=== PATIENT | male | born 1985 | race Caucasian/White ===

== ENCOUNTER 2017-09-13 05:49 | Inpatient (IN) | payer OTHER ==
[~2017-09-13] VITALS: Ht 177.8 cm; Wt 124.5 kg
[2017-09-13 05:55] VITALS: BP 161/79; PULSE 74; RESP 18; TEMP 98.6; O2SAT 97
[2017-09-13] MEDS ORDERED: SILVER SULFADIAZINE 1% CR 400 GM JAR TOPICAL ONE (06:15)
[2017-09-13] MEDS ORDERED: MORPHINE SULFATE 4 MG/ML INJ IV PUSH ONE (06:15)
[2017-09-13] MEDS ORDERED: MISCELLANEOUS NURSING INFORMATION XX SCH (07:00)
[2017-09-13] MEDS ORDERED: CHLORHEXIDINE GLUCONATE 2 % 1 PACK (2 CLOTHS) TOP PRN (07:00)
[2017-09-13] MEDS ORDERED: ONDANSETRON HCL 4 MG/2 ML VIAL IV PUSH PRN (07:00)
[2017-09-13 07:17] VITALS: BP 157/73; PULSE 95; RESP 18; O2SAT 94
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
[2017-09-13] MEDS: ACETAMINOPHEN 1000 MG/100 ML 100 ML IV SCH ×3 (07:51→19:30)
[2017-09-13] MEDS: MAGNESIUM HYDROXIDE SUSP 30 ML CUP PO SCH ×2 (08:16→20:50)
[2017-09-13] MEDS: DOCUSATE SODIUM 50 MG/SENNA 8.6 MG TAB PO SCH ×2 (08:16→20:50)
[2017-09-13] MEDS: SILVER SULFADIAZINE 1% CR 50 GM JAR TOPICAL SCH ×2 (09:00→20:50)
[2017-09-13] MEDS ORDERED: DOCUSATE SODIUM 100 MG CAP PO SCH (09:00)
[2017-09-13] MEDS: METHOCARBAMOL 500 MG TAB PO SCH ×2 (09:27→16:58)
[2017-09-13] MEDS: LIDOCAINE HCL 5% PATCH T-DERMAL SCH (09:28)
[2017-09-13 12:00] VITALS: BP 152/75; PULSE 82; RESP 18; O2SAT 96
[2017-09-13] MEDS: MORPHINE SULFATE 8 MG/ML INJ IV PUSH PRN ×2 (17:00→20:09)
[2017-09-13 17:20] VITALS: BP 140/80; PULSE 81; RESP 18; TEMP 95.9; O2SAT 95
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
[2017-09-13 20:00] VITALS: BP 141/81; PULSE 94; RESP 18; TEMP 96.6; O2SAT 96
[2017-09-13] MEDS: REMOVE OLD LIDOCAINE PATCH T-DERMAL SCH (20:50)
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
[2017-09-14] VITALS (7 sets, daily range): BP systolic 139–179; BP diastolic 75–99; PULSE 92–103; RESP 17–20; TEMP 98–99.1; O2SAT 95–96
[2017-09-14] MEDS: METHOCARBAMOL 500 MG TAB PO SCH ×3 (00:24→18:04)
[2017-09-14] MEDS: ACETAMINOPHEN 1000 MG/100 ML 100 ML IV SCH (00:25)
[2017-09-14] MEDS: MORPHINE SULFATE 8 MG/ML INJ IV PUSH PRN ×4 (02:06→20:02)
[2017-09-14] MEDS ORDERED: CHLORHEXIDINE GLUCONATE 2 % 1 PACK (2 CLOTHS) TOP SCH (04:00)
[2017-09-14 05:12] LABS: AUTOMATED NEUTROPHIL # 6.7 TH/MM3 (1.8-7.7); BASOPHIL % 0.5 % (0.0-2.0); EOSINOPHIL # 0.2 TH/MM3 (0-0.4); EOSINOPHIL % 1.7 % (0.0-4.0); HEMATOCRIT 38.5 % (39.0-51.0); HEMOGLOBIN 13.3 GM/DL (13.0-17.0); LYMPH % 18.2 % (9.0-44.0); LYMPHOCYTE # 1.8 TH/MM3 (1.0-4.8); MEAN CELL VOLUME 84.9 FL (80.0-100.0); MEAN CORPUSCULAR HEMOGLOBIN 29.3 PG (27.0-34.0); MEAN CORPUSCULAR HGB CONC 34.5 % (32.0-36.0); MEAN PLATELET VOLUME 8.1 FL (7.0-11.0); MONO % 12.7 % (0.0-8.0); MONOCYTE # 1.3 TH/MM3 (0-0.9); NEUT % 66.9 % (16.0-70.0); PLATELET COUNT 178 TH/MM3 (150-450); RED BLOOD COUNT 4.54 MIL/MM3 (4.50-5.90); RED CELL DISTRIBUTION WIDTH 14.7 % (11.6-17.2); WHITE BLOOD COUNT 10.1 TH/MM3 (4.0-11.0)
[2017-09-14 05:25] LABS: BICARBONATE 27.5 MEQ/L (21.0-32.0); CALCIUM 7.8 MG/DL (8.5-10.1); CREATININE 0.94 MG/DL (0.60-1.30)
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
[2017-09-14] MEDS: MAGNESIUM HYDROXIDE SUSP 30 ML CUP PO SCH ×2 (08:00→20:01)
[2017-09-14] MEDS: DOCUSATE SODIUM 50 MG/SENNA 8.6 MG TAB PO SCH ×2 (08:00→20:02)
[2017-09-14] MEDS: LIDOCAINE HCL 5% PATCH T-DERMAL SCH (08:01)
[2017-09-14] MEDS: SILVER SULFADIAZINE 1% CR 50 GM JAR TOPICAL SCH ×2 (08:06→20:03)
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
[2017-09-14] MEDS: REMOVE OLD LIDOCAINE PATCH T-DERMAL SCH (20:03)
[2017-09-14] MEDS ORDERED: METOPROLOL TARTRATE 25 MG TAB PO PRN (22:00)
[2017-09-14] MEDS ORDERED: POVIDONE IODINE 5% (ANTISEPSIS KIT) 4 APPLICATIONS EACH NARE PRN (22:00)
[2017-09-14] MEDS ORDERED: CHLORHEXIDINE GLUCONATE 2 % 1 PACK (2 CLOTHS) TOPICAL PRN (22:00)
[2017-09-14] MEDS ORDERED: SODIUM CHLORID 0.9% 500 ML IV PRN (22:00)
[2017-09-14] MEDS ORDERED: LACTATED RINGER'S 1000 ML IV PRN (22:00)
[2017-09-15] VITALS: BP 137/84; PULSE 101; RESP 17; TEMP 98.4; O2SAT 92
[2017-09-15] MEDS: METHOCARBAMOL 500 MG TAB PO SCH ×3 (01:09→17:00)
[2017-09-15] MEDS: MORPHINE SULFATE 8 MG/ML INJ IV PUSH PRN (03:14)
[2017-09-15 06:05] VITALS: BP 149/91; PULSE 98; RESP 16; TEMP 99.3; O2SAT 92
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
[2017-09-15] MEDS: ENOXAPARIN SODIUM 40 MG/0.4 ML SYRINGE SQ SCH (07:00)
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
[2017-09-15 07:56] VITALS: BP 144/75; PULSE 86; RESP 18; TEMP 97.3; O2SAT 92
[2017-09-15] MEDS: MAGNESIUM HYDROXIDE SUSP 30 ML CUP PO SCH ×2 (08:04→21:00)
[2017-09-15] MEDS: LIDOCAINE HCL 5% PATCH T-DERMAL SCH (08:04)
[2017-09-15] MEDS: DOCUSATE SODIUM 50 MG/SENNA 8.6 MG TAB PO SCH ×2 (08:04→21:00)
[2017-09-15] MEDS: SILVER SULFADIAZINE 1% CR 50 GM JAR TOPICAL SCH ×2 (08:05→21:37)
[2017-09-15] MEDS: KETOROLAC TROMETHAMINE 30 MG/ML (IVP) VIAL IV PUSH SCH ×3 (09:12→23:06)
[2017-09-15 11:53] VITALS: BP 140/90; PULSE 90; RESP 18; TEMP 97.4; O2SAT 95
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
[2017-09-15 15:50] VITALS: BP 149/81; PULSE 92; RESP 18; TEMP 97.9; O2SAT 96
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
[2017-09-15 20:00] VITALS: BP 143/82; PULSE 96; RESP 22; TEMP 99.5; O2SAT 95
[2017-09-15] MEDS: REMOVE OLD LIDOCAINE PATCH T-DERMAL SCH (21:00)
[2017-09-16] VITALS: BP 158/80; PULSE 95; RESP 20; TEMP 99; O2SAT 96
[2017-09-16] MEDS: METHOCARBAMOL 500 MG TAB PO SCH ×3 (01:16→17:06)
[2017-09-16] MEDS: ENOXAPARIN SODIUM 40 MG/0.4 ML SYRINGE SQ SCH (01:18)
[2017-09-16 04:00] VITALS: BP 141/73; PULSE 77; RESP 18; TEMP 98; O2SAT 98
[2017-09-16] MEDS: KETOROLAC TROMETHAMINE 30 MG/ML (IVP) VIAL IV PUSH SCH (05:11)
[2017-09-16 05:12] LABS: AUTOMATED NEUTROPHIL # 4.7 TH/MM3 (1.8-7.7); BASOPHIL % 0.6 % (0.0-2.0); EOSINOPHIL # 0.2 TH/MM3 (0-0.4); EOSINOPHIL % 3.2 % (0.0-4.0); HEMATOCRIT 37.6 % (39.0-51.0); HEMOGLOBIN 12.9 GM/DL (13.0-17.0); LYMPH % 22.2 % (9.0-44.0); LYMPHOCYTE # 1.7 TH/MM3 (1.0-4.8); MEAN CELL VOLUME 84.9 FL (80.0-100.0); MEAN CORPUSCULAR HEMOGLOBIN 29.1 PG (27.0-34.0); MEAN CORPUSCULAR HGB CONC 34.3 % (32.0-36.0); MEAN PLATELET VOLUME 8.4 FL (7.0-11.0); MONO % 11.7 % (0.0-8.0); MONOCYTE # 0.9 TH/MM3 (0-0.9); NEUT % 62.3 % (16.0-70.0); PLATELET COUNT 196 TH/MM3 (150-450); RED BLOOD COUNT 4.43 MIL/MM3 (4.50-5.90); RED CELL DISTRIBUTION WIDTH 14.5 % (11.6-17.2); WHITE BLOOD COUNT 7.5 TH/MM3 (4.0-11.0)
[2017-09-16 05:20] LABS: BICARBONATE 28.1 MEQ/L (21.0-32.0); CALCIUM 8.4 MG/DL (8.5-10.1); CREATININE 0.76 MG/DL (0.60-1.30)
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
[2017-09-16 08:00] VITALS: BP 135/70; PULSE 67; RESP 18; TEMP 96.8; O2SAT 96
[2017-09-16] MEDS: MAGNESIUM HYDROXIDE SUSP 30 ML CUP PO SCH ×2 (08:42→21:08)
[2017-09-16] MEDS: DOCUSATE SODIUM 50 MG/SENNA 8.6 MG TAB PO SCH ×2 (08:43→21:08)
[2017-09-16] MEDS: SILVER SULFADIAZINE 1% CR 50 GM JAR TOPICAL SCH ×2 (08:43→21:10)
[2017-09-16] MEDS: LIDOCAINE HCL 5% PATCH T-DERMAL SCH (08:43)
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
[2017-09-16 12:00] VITALS: BP 139/84; PULSE 88; RESP 18; TEMP 97.5; O2SAT 98
[2017-09-16 16:00] VITALS: BP 160/93; PULSE 87; RESP 18; TEMP 97.7; O2SAT 97
[2017-09-16 19:28] VITALS: BP 152/72; PULSE 90; RESP 18; TEMP 97.5; O2SAT 94
[2017-09-16] MEDS: REMOVE OLD LIDOCAINE PATCH T-DERMAL SCH (21:00)
[2017-09-17] VITALS (7 sets, daily range): BP systolic 127–173; BP diastolic 75–94; PULSE 66–101; RESP 18–20; TEMP 97–98.6; O2SAT 95–98
[2017-09-17] MEDS: METHOCARBAMOL 500 MG TAB PO SCH ×3 (01:03→17:19)
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
[2017-09-17] MEDS: ENOXAPARIN SODIUM 40 MG/0.4 ML SYRINGE SQ SCH (07:33)
[2017-09-17] MEDS: SILVER SULFADIAZINE 1% CR 50 GM JAR TOPICAL SCH ×2 (09:00→20:34)
[2017-09-17] MEDS: MAGNESIUM HYDROXIDE SUSP 30 ML CUP PO SCH ×2 (09:21→20:31)
[2017-09-17] MEDS: LIDOCAINE HCL 5% PATCH T-DERMAL SCH (09:21)
[2017-09-17] MEDS: DOCUSATE SODIUM 50 MG/SENNA 8.6 MG TAB PO SCH ×2 (09:21→20:31)
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
[2017-09-17] MEDS: REMOVE OLD LIDOCAINE PATCH T-DERMAL SCH (20:34)
[2017-09-18] MEDS: METHOCARBAMOL 500 MG TAB PO SCH ×3 (02:18→18:04)
[2017-09-18] MEDS: ENOXAPARIN SODIUM 40 MG/0.4 ML SYRINGE SQ SCH (02:21)
[2017-09-18 03:58] VITALS: BP 129/84; PULSE 86; RESP 18; TEMP 97.2; O2SAT 96
[2017-09-18] MEDS ORDERED: CHLORHEXIDINE GLUCONATE 2 % 1 PACK (2 CLOTHS) TOPICAL PRN (04:15)
[2017-09-18] MEDS ORDERED: SODIUM CHLORID 0.9% 500 ML IV PRN (04:15)
[2017-09-18] MEDS ORDERED: LACTATED RINGER'S 1000 ML IV PRN (04:15)
[2017-09-18] MEDS ORDERED: POVIDONE IODINE 5% (ANTISEPSIS KIT) 4 APPLICATIONS EACH NARE PRN (04:15)
[2017-09-18 04:54] LABS: AUTOMATED NEUTROPHIL # 6.2 TH/MM3 (1.8-7.7); BASOPHIL # 0.1 TH/MM3 (0-0.2); BASOPHIL % 0.7 % (0.0-2.0); EOSINOPHIL # 0.4 TH/MM3 (0-0.4); EOSINOPHIL % 4.3 % (0.0-4.0); HEMATOCRIT 37.6 % (39.0-51.0); HEMOGLOBIN 13.1 GM/DL (13.0-17.0); LYMPH % 17.5 % (9.0-44.0); LYMPHOCYTE # 1.6 TH/MM3 (1.0-4.8); MEAN CELL VOLUME 84.6 FL (80.0-100.0); MEAN CORPUSCULAR HEMOGLOBIN 29.4 PG (27.0-34.0); MEAN CORPUSCULAR HGB CONC 34.7 % (32.0-36.0); MEAN PLATELET VOLUME 7.9 FL (7.0-11.0); MONO % 9.3 % (0.0-8.0); MONOCYTE # 0.8 TH/MM3 (0-0.9); NEUT % 68.2 % (16.0-70.0); PLATELET COUNT 228 TH/MM3 (150-450); RED BLOOD COUNT 4.44 MIL/MM3 (4.50-5.90); RED CELL DISTRIBUTION WIDTH 14.4 % (11.6-17.2); WHITE BLOOD COUNT 9.1 TH/MM3 (4.0-11.0)
[2017-09-18 05:13] LABS: AST (GOT) 41 U/L (15-37); BICARBONATE 27.1 MEQ/L (21.0-32.0); BLOOD UREA NITROGEN 11 MG/DL (7-18); CALCIUM 8.6 MG/DL (8.5-10.1); CHLORIDE 100 MEQ/L (98-107); CREATININE 0.82 MG/DL (0.60-1.30); GLOMERULAR FILTRATION RATE 109 ML/MIN (>89); GLUCOSE,RANDOM 102 MG/DL (74-106); SODIUM (NA) 136 MEQ/L (136-145)
[2017-09-18 05:14] LABS: ALT (GPT) 38 U/L (12-78)
[2017-09-18 05:16] LABS: ALKALINE PHOSPHATASE 106 U/L (45-117); TOTAL BILIRUBIN ADULT 0.6 MG/DL (0.2-1.0); TOTAL PROTEIN 6.8 GM/DL (6.4-8.2)
--- NOTE | 2017-09-18 06:43 | PD.ORT.PN ---
Subjective Subjective Remarks s/p left tibial plateau fx doing well. no changes Objective Vitals Vital Signs Date Time Temp Pulse Resp B/P (MAP) Pulse Ox O2 Delivery O2 Flow Rate FiO2 09/18/17 03:58 97.2 86 18 129/84 (99) 96 09/17/17 23:00 98.4 97 19 149/81 (103) 98 09/17/17 19:40 98.6 83 18 162/94 (116) 97 09/17/17 16:00 97.1 95 20 158/77 (104) 97 09/17/17 15:00 18 09/17/17 12:00 97.0 101 20 173/77 (109) 97 09/17/17 08:00 97.6 66 20 151/86 (107) 95 I/O 09/17/17 09/17/17 09/17/17 09/18/17 09/18/17 09/18/17 07:00 15:00 23:00 07:00 15:00 23:00 Intake Total 0 ml 480 ml 360 ml 0 ml Output Total 500 ml 700 ml Balance -500 ml 480 ml 360 ml -700 ml Intake Oral 0 ml 480 ml 360 ml 0 ml Output Urine Total 500 ml 700 ml # Voids 3 2 # Bowel Movements 0 0 0 1 Result Diagram: 09/18/17 0418 09/18/17 0419 Objective Remarks Multiple areas of road rash. Swelling and tenderness with minimal deformity right Little finger. Patient thinks that it is fractured. Left leg with knee immobilizer in place. Sensation normal. Active dorsiflexion plantar flexion of foot. Swelling a +3 over knee. Assessment & Plan Problem List: (1) Closed fracture of left tibial plateau ICD Codes: S82.142A - Displaced bicondylar fracture of left tibia, initial encounter for closed fracture Status: Acute Qualifiers: Qualified Codes: S82.142A - Displaced bicondylar fracture of left tibia, initial encounter for closed fracture (2) Multiple rib fractures ICD Codes: S22.49XA - Multiple fractures of ribs, unspecified side, initial encounter for closed fracture Status: Acute Qualifiers: Qualified Codes: S22.42XA - Multiple fractures of ribs, left side, initial encounter for closed fracture Assessment and Plan 1) Bicondylar left tibial plateau fracture. Multiple rib fractures. Multiple areas of road rash. Possible right hand fracture. swelling too great for surgery today. would anticipate tomorrow Resume diet due to significant swelling Begin Toradol 15 mg every 8 hours 3 doses Lovenox x 1 dose this AM and hold after AM dose Will make nothing by mouth after midnight tonight planned surgery tomorrow sign consents Incentive spirometry Navdeep Pitt/Sales Store Checker PA Sep 18, 2017 06:43
[2017-09-18] MEDS: KETOROLAC TROMETHAMINE 30 MG/ML (IVP) VIAL IV PUSH SCH ×3 (07:34→21:46)
[2017-09-18 08:00] VITALS: BP 149/70; PULSE 88; RESP 18; TEMP 96.1; O2SAT 96
[2017-09-18] MEDS ORDERED: ENOXAPARIN SODIUM 40 MG/0.4 ML SYRINGE SQ ONE (08:00)
[2017-09-18] MEDS: LIDOCAINE HCL 5% PATCH T-DERMAL SCH (08:27)
[2017-09-18] MEDS: DOCUSATE SODIUM 50 MG/SENNA 8.6 MG TAB PO SCH ×2 (08:27→20:29)
[2017-09-18] MEDS: MAGNESIUM HYDROXIDE SUSP 30 ML CUP PO SCH ×2 (08:29→20:29)
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
[2017-09-18] MEDS: SILVER SULFADIAZINE 1% CR 50 GM JAR TOPICAL SCH ×2 (09:00→20:30)
[2017-09-18 12:00] VITALS: BP 160/74; PULSE 98; RESP 18; TEMP 97.4; O2SAT 97
[2017-09-18 16:16] VITALS: BP 142/76; PULSE 95; RESP 18; TEMP 97.7; O2SAT 96
[2017-09-18 20:40] VITALS: BP 154/79; PULSE 90; RESP 19; TEMP 99; O2SAT 98
[2017-09-18] MEDS: REMOVE OLD LIDOCAINE PATCH T-DERMAL SCH (21:00)
[2017-09-18 23:45] VITALS: BP 145/78; PULSE 88; RESP 16; TEMP 97.4; O2SAT 97
[2017-09-19] MEDS: METHOCARBAMOL 500 MG TAB PO SCH ×3 (02:18→15:45)
[2017-09-19 04:15] VITALS: BP 138/79; PULSE 79; RESP 16; TEMP 97.6; O2SAT 98
--- NOTE | 2017-09-19 06:24 | PD.ORT.PN ---
Subjective Subjective Remarks s/p left tibial plateau fx doing well. no changes Objective Vitals Vital Signs Date Time Temp Pulse Resp B/P (MAP) Pulse Ox O2 Delivery O2 Flow Rate FiO2 09/19/17 04:15 97.6 79 16 138/79 (98) 98 09/18/17 23:45 97.4 88 16 145/78 (100) 97 09/18/17 20:40 99.0 90 19 154/79 (104) 98 09/18/17 16:16 97.7 95 18 142/76 (98) 96 09/18/17 12:00 97.4 98 18 160/74 (102) 97 09/18/17 08:00 96.1 88 18 149/70 (96) 96 I/O 09/18/17 09/18/17 09/18/17 09/19/17 09/19/17 09/19/17 07:00 15:00 23:00 07:00 15:00 23:00 Intake Total 0 ml 480 ml 0 ml Output Total 700 ml 350 ml Balance -700 ml 480 ml -350 ml Intake Oral 0 ml 480 ml 0 ml Output Urine Total 700 ml 350 ml # Voids 3 # Bowel Movements 1 1 0 Result Diagram: 09/18/17 0418 09/18/17 0419 Objective Remarks Multiple areas of road rash. Swelling and tenderness with minimal deformity right Little finger. Patient thinks that it is fractured. Left leg with knee immobilizer in place. Sensation normal. Active dorsiflexion plantar flexion of foot. Swelling a +1 over knee. Assessment & Plan Problem List: (1) Closed fracture of left tibial plateau ICD Codes: S82.142A - Displaced bicondylar fracture of left tibia, initial encounter for closed fracture Status: Acute Qualifiers: Qualified Codes: S82.142A - Displaced bicondylar fracture of left tibia, initial encounter for closed fracture (2) Multiple rib fractures ICD Codes: S22.49XA - Multiple fractures of ribs, unspecified side, initial encounter for closed fracture Status: Acute Qualifiers: Qualified Codes: S22.42XA - Multiple fractures of ribs, left side, initial encounter for closed fracture Assessment and Plan 1) Bicondylar left tibial plateau fracture. Multiple rib fractures. Multiple areas of road rash. Possible right hand fracture. surgery this AM for ORIF of left tibial plateau with Dr DexterNavdeep Diaz PA/Cell Room Supervisor PA Sep 19, 2017 06:24
[2017-09-19] MEDS ORDERED: XARE10TA PO (06:25)
[2017-09-19] MEDS ORDERED: WALKER/ADULT/FO1 MIS (06:25)
[2017-09-19] MEDS ORDERED: HYDR-3583 PO (06:25)
[2017-09-19 06:58] LABS: INTERNATIONAL NORMALIZED RATIO 1.1 RATIO; PROTHROMBIN TIME - PATIENT 11.2 SEC (9.8-11.6)
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
[2017-09-19] MEDS ORDERED: VANCOMYCIN HCL 1000 MG VIAL ONE (08:08)
[2017-09-19] MEDS ORDERED: GENTAMICIN SULFATE 80 MG/2 ML VIAL ONE (08:08)
[2017-09-19] MEDS ORDERED: ceFAZolin INJ 1,000 MG VIAL ONE (08:08)
[2017-09-19] MEDS ORDERED: SODIUM CHLOR 0.9% 250 ML INJ 250 ML ONE (08:09)
[2017-09-19] MEDS: DOCUSATE SODIUM 50 MG/SENNA 8.6 MG TAB PO SCH ×2 (09:00→20:59)
[2017-09-19] MEDS: LIDOCAINE HCL 5% PATCH T-DERMAL SCH (09:00)
[2017-09-19] MEDS: MAGNESIUM HYDROXIDE SUSP 30 ML CUP PO SCH ×2 (09:00→20:59)
[2017-09-19] MEDS: SILVER SULFADIAZINE 1% CR 50 GM JAR TOPICAL SCH ×2 (09:00→21:00)
[2017-09-19] MEDS ORDERED: LACTATED RINGER'S 1000 ML INJ 1,000 ML IV SCH (09:58)
[2017-09-19] MEDS ORDERED: Post-op Orders (for Pharmacy) XX ONE (10:00)
[2017-09-19] MEDS ORDERED: MISCELLANEOUS NURSING INFORMATION XX PRN (10:00)
--- NOTE | 2017-09-19 10:04 | PD.OP ---
cc: Joseph Francis MD Operative Report Date of Surgery: Sep 19, 2017 Preoperative Diagnosis: Left bicondylar tibial plateau fracture Postoperative Diagnosis: Procedure: Open reduction internal fixation of left bicondylar tibial plateau Anesthesia: Gen. Surgeon: Joseph Francis Workday Manager(s): CATHY Lieberman PA-C The surgical procedure was assisted by my physician surgical first assistant. My P.A. presence was necessary throughout this case for the manipulation and positioning of the surgical extremity. My P.A. was assisting me throughout the duration of this procedure. The skill set of a physician surgical first assistant was medically necessary to complete this procedure. During the surgical case the surgical pathologist was working at the back table and the physician surgical first assistant was directly assisting me. Operation and Findings: Implants used: Synthes Plan of activity: Nonweightbearing left leg This patient was seen and evaluated preoperatively. Patient sustained an injury resulting a left bicondylar tibial plateau fracture. Informed consent was obtained preoperatively after detailed discussion of the risks and benefits of surgery. Risk of surgery including bleeding, infection, nonunion, painful hardware, stiffness, loss of motion, arthritis, need for knee replacement, as well as medical complications including blood clots, stroke, heart attack, and were discussed. I also discussed the possibility of using allograft bone graft . Preoperatively the operative site was marked. Patient was brought to the operating room and placed on the operating room table. Intravenous sedation and general endotracheal anesthesia were administered. IV antibiotics were given and a time out procedure was preformed. The operative leg was prepped with alcohol followed by Hibiclens and draped in the usual sterile fashion. Procedure began with a 4-inch curvilinear incision over the anterolateral knee. Subcutaneous tissue was treated with Bovie. Iliotibial band was split in line with fibers. A sub-meniscal arthrotomy was created and the lateral articular surface was visualized. There was depression of the articular surface. A window was made in the metaphyseal region and bone tamps used to elevate the articular surface. Articular surface reduced into excellent alignment. At this point the metaphyseal portion of the lateral plateau was reduced. Fracture tenaculums were used to aid in reduction. Traction was applied and fracture was manipulated. At this point the medial plateau was visualized. A periarticular clamp was used to compress the medial tibial plateau with a lateral plateau fragment. K-wires were used for provisional fixation. At this point cancellous bone graft was packed under the articular surface using a bone tamp. The cortical fragments were now reduced. Fluoroscopy revealed excellent alignment of fracture. A Synthes proximal tibial plate was selected. The plate was provisionally held with K-wires. 3.5 cortical screws were used compress plate to bone distally, and a periarticular clamp was used to compress the medial and lateral tibial plateau fracture fragments together. Multiple locking screws were now placed proximally. Additional screws were placed in the shaft. K-wires were removed. Final fluoroscopy showed excellent alignment of fracture with well-placed hardware. The incision was thoroughly irrigated. Arthrotomy and iliotibial band closed with #1 Vicryl,. Subcutaneous tissues closed with 3-0 Vicryl and skin was closed with jazz. Sterile dressings were applied. The patient was transferred to recovery in stable condition. Joseph Francis MD Sep 19, 2017 10:04
--- NOTE | 2017-09-19 10:53 | PD.ORT.PN ---
Subjective Subjective Remarks POD 0 s/p ORIF left tibial plateau doing well. stable in PACU Objective Vitals Vital Signs Date Time Temp Pulse Resp B/P (MAP) Pulse Ox O2 Delivery O2 Flow Rate FiO2 09/19/17 10:36 97.7 87 20 115/82 (93) 94 Nasal Cannula 2 09/19/17 04:15 97.6 79 16 138/79 (98) 98 09/18/17 23:45 97.4 88 16 145/78 (100) 97 09/18/17 20:40 99.0 90 19 154/79 (104) 98 09/18/17 16:16 97.7 95 18 142/76 (98) 96 09/18/17 12:00 97.4 98 18 160/74 (102) 97 I/O 09/18/17 09/18/17 09/18/17 09/19/17 09/19/17 09/19/17 07:00 15:00 23:00 07:00 15:00 23:00 Intake Total 0 ml 480 ml 0 ml 750 ml Output Total 700 ml 350 ml 200 ml Balance -700 ml 480 ml -350 ml 550 ml Intake Oral 0 ml 480 ml 0 ml Other 750 ml Output Urine Total 700 ml 350 ml Estimated Blood Loss 200 ml # Voids 3 1 # Bowel Movements 1 1 0 Result Diagram: 09/18/17 0418 09/18/17 0419 Other Results Laboratory Tests Test 09/19/17 06:18 Prothromb Time International Ratio 1.1 RATIO Prothrombin Time 11.2 SEC (9.8-11.6) Imaging Last 24 hours Impressions Chest X-Ray 09/19/17 0600 Signed Impressions: Service Date/Time: Tuesday, September 19, 2017 06:24 - CONCLUSION: Left basilar atelectasis. Shane Gannon MD Objective Remarks LLE: Dressings clean and dry. intact. +CKS. good cap refill distally Assessment & Plan Problem List: (1) Closed fracture of left tibial plateau ICD Codes: S82.142A - Displaced bicondylar fracture of left tibia, initial encounter for closed fracture Status: Acute Qualifiers: Qualified Codes: S82.142A - Displaced bicondylar fracture of left tibia, initial encounter for closed fracture (2) Multiple rib fractures ICD Codes: S22.49XA - Multiple fractures of ribs, unspecified side, initial encounter for closed fracture Status: Acute Qualifiers: Qualified Codes: S22.42XA - Multiple fractures of ribs, left side, initial encounter for closed fracture Assessment and Plan 1) Left Tibial Plateau fx s/p ORIF - POD 0 Multiple rib fractures. Multiple areas of road rash. Possible right hand fracture. -NWB LLE -knee brace at all times except for PT -PROM 0-90 -no AROM, leg lifts, quad sets -daily dressing changes POD 2 -DVT prophylaxis -plan for DC home with [facility] -f/u Ortho in 2 weeks [place] to [place] -ortho surgeries complete Navdeep Pitt/First Raúl ROSENBERG Sep 19, 2017 10:53
[2017-09-19] MEDS ORDERED: DO NOT ADM ANY ANTICOAGULANT DRUGS PRN (11:00)
[2017-09-19] MEDS ORDERED: *morphine SULFATE 10 MG/ML PERIprocedure ONLY ONE (11:03)
[2017-09-19] MEDS: KETOROLAC TROMETHAMINE 30 MG/ML (IVP) VIAL IV PUSH SCH ×2 (11:40→18:28)
[2017-09-19 12:00] VITALS: BP 123/68; PULSE 89; RESP 18; TEMP 97; O2SAT 92
[2017-09-19] MEDS ORDERED: DEXAMETHASONE SOD PHOS 4 MG/ML VIAL IV ONE (12:00)
[2017-09-19] MEDS ORDERED: LIDOCAINE HCL 1% PF 5 ML SYRINGE OTHER ONE (12:00)
[2017-09-19] MEDS ORDERED: KETOROLAC TROMETHAMINE 30 MG/ML (IVP) VIAL IV PUSH ONE (12:00)
[2017-09-19] MEDS ORDERED: ONDANSETRON HCL 4 MG/2 ML VIAL IV ONE (12:00)
[2017-09-19] MEDS ORDERED: PROPOFOL 200 MG/20 ML AMP IV ONE (12:00)
[2017-09-19 12:19] VITALS: O2SAT 92
[2017-09-19] MEDS ORDERED: ERGOCALCIFEROL (VIT D2) 50,000 UNIT CAP PO SCH (15:00)
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
[2017-09-19 16:00] VITALS: BP 151/70; PULSE 105; RESP 18; TEMP 99; O2SAT 95
[2017-09-19] MEDS: CEFAZOLIN INJ 2,000 MG in SODIUM CHLORIDE 0.9% INJ 100 ML IV SCH (16:15)
--- NOTE | 2017-09-19 19:52 | RADRPT ---
EXAM DATE/TIME: 09/19/2017 09:46 [facility] COMPARISON: No previous studies available for comparison. INDICATIONS : Left Tibia fracture- ORIF Tibial plateau. MEDICAL HISTORY : None. SURGICAL HISTORY : None. ENCOUNTER: Initial ACUITY: 1 day PAIN SCORE: Non-responsive. LOCATION: Left Lower. FINDINGS: Plate and screw fixation of the proximal tibia. Near-anatomic alignment. CONCLUSION: 1. Fixation proximal tibia. Korey Licona MD on September 19, 2017 at 19:49 Board Certified Radiologist. This report was verified electronically.
[2017-09-19 20:03] VITALS: BP 145/69; PULSE 107; RESP 18; TEMP 98.3; O2SAT 98
[2017-09-19] MEDS: VANCOMYCIN INJ 1,000 MG in SODIUM CHLOR 0.9% 250 ML INJ 250 ML IV SCH (20:39)
[2017-09-19] MEDS: REMOVE OLD LIDOCAINE PATCH T-DERMAL SCH (20:59)
[2017-09-19] MEDS: MORPHINE SULFATE 8 MG/ML INJ IV PUSH PRN (22:14)
[2017-09-19 23:30] VITALS: BP 140/64; PULSE 98; RESP 18; TEMP 97.9; O2SAT 95
[2017-09-20] MEDS: METHOCARBAMOL 500 MG TAB PO SCH ×3 (00:30→14:45)
[2017-09-20] MEDS: KETOROLAC TROMETHAMINE 30 MG/ML (IVP) VIAL IV PUSH SCH ×4 (00:30→18:00)
[2017-09-20] MEDS: CEFAZOLIN INJ 2,000 MG in SODIUM CHLORIDE 0.9% INJ 100 ML IV SCH ×3 (00:30→14:45)
[2017-09-20 03:38] VITALS: BP 129/66; PULSE 95; RESP 18; TEMP 98; O2SAT 97
[2017-09-20 06:00] LABS: HEMATOCRIT 34.2 % (39.0-51.0); HEMOGLOBIN 11.8 GM/DL (13.0-17.0)
--- NOTE | 2017-09-20 06:46 | PD.ORT.PN ---
Subjective Subjective Remarks Resting comfortably with no new complaints Objective Vitals Vital Signs Date Time Temp Pulse Resp B/P (MAP) Pulse Ox O2 Delivery O2 Flow Rate FiO2 09/20/17 03:38 98.0 95 18 129/66 (87) 97 09/19/17 23:30 97.9 98 18 140/64 (89) 95 09/19/17 20:03 98.3 107 18 145/69 (94) 98 09/19/17 16:00 99.0 105 18 151/70 (97) 95 09/19/17 12:19 92 Nasal Cannula 2.00 09/19/17 12:00 97.0 89 18 123/68 (86) 92 09/19/17 11:16 97.7 87 20 106/60 (75) 93 Nasal Cannula 2 09/19/17 11:00 86 20 131/64 (86) 94 Nasal Cannula 2 09/19/17 10:45 82 20 125/59 (81) 93 Nasal Cannula 2 09/19/17 10:36 97.7 87 20 115/82 (93) 94 Nasal Cannula 2 I/O 09/19/17 09/19/17 09/19/17 09/20/17 09/20/17 09/20/17 07:00 15:00 23:00 07:00 15:00 23:00 Intake Total 0 ml 1230 ml 480 ml 480 ml Output Total 350 ml 900 ml 750 ml Balance -350 ml 330 ml 480 ml -270 ml Intake Oral 0 ml 480 ml 480 ml 480 ml Other 750 ml Output Urine Total 350 ml 700 ml 750 ml Estimated Blood Loss 200 ml # Voids 1 4 # Bowel Movements 0 0 0 0 Result Diagram: 09/20/17 0537 09/18/17 0419 Imaging Last 24 hours Impressions Chest X-Ray 09/19/17 0600 Signed Impressions: Service Date/Time: Tuesday, September 19, 2017 06:24 - CONCLUSION: Left basilar atelectasis. Shane Gannon MD Objective Remarks LLE: Dressings clean and dry. intact. +CKS. good cap refill distally. Active dorsiflexion and plantar flexion of foot Assessment & Plan Problem List: (1) Closed fracture of left tibial plateau ICD Codes: S82.142A - Displaced bicondylar fracture of left tibia, initial encounter for closed fracture Status: Acute Qualifiers: Qualified Codes: S82.142A - Displaced bicondylar fracture of left tibia, initial encounter for closed fracture (2) Multiple rib fractures ICD Codes: S22.49XA - Multiple fractures of ribs, unspecified side, initial encounter for closed fracture Status: Acute Qualifiers: Qualified Codes: S22.42XA - Multiple fractures of ribs, left side, initial encounter for closed fracture Assessment and Plan 1) Left Tibial Plateau fx s/p ORIF - POD 1 Multiple rib fractures. Multiple areas of road rash. Right fifth finger fracture. -NWB LLE -knee brace at all times except for PT -PROM 0-90 -no AROM, leg lifts, quad sets -daily dressing changes POD 2 -DVT prophylaxis -plan for DC home on Friday or Friday -f/u Ortho in 2 weeks Incentive spirometry Bubba Miles Jr. Sep 20, 2017 06:46
[2017-09-20 08:00] VITALS: BP 113/76; PULSE 95; RESP 17; TEMP 98.5; O2SAT 95
[2017-09-20] MEDS: SILVER SULFADIAZINE 1% CR 50 GM JAR TOPICAL SCH ×2 (08:42→20:24)
[2017-09-20] MEDS: LIDOCAINE HCL 5% PATCH T-DERMAL SCH (08:59)
[2017-09-20] MEDS: MAGNESIUM HYDROXIDE SUSP 30 ML CUP PO SCH ×2 (09:00→20:15)
[2017-09-20] MEDS: ENOXAPARIN SODIUM 30 MG/0.3 ML SYRINGE SQ SCH ×2 (09:00→21:20)
[2017-09-20] MEDS: DOCUSATE SODIUM 50 MG/SENNA 8.6 MG TAB PO SCH ×2 (09:00→20:16)
[2017-09-20] MEDS: CHOLECALCIFEROL (VIT D3) 1000 UNIT TAB PO SCH (09:01)
[2017-09-20] MEDS: VANCOMYCIN INJ 1,000 MG in SODIUM CHLOR 0.9% 250 ML INJ 250 ML IV SCH ×2 (09:07→20:16)
[2017-09-20 12:00] VITALS: BP 133/63; PULSE 93; RESP 18; TEMP 98; O2SAT 97
[2017-09-20] MEDS: MORPHINE SULFATE 8 MG/ML INJ IV PUSH PRN ×2 (12:25→20:15)
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
[2017-09-20 16:00] VITALS: BP 150/67; PULSE 90; RESP 18; TEMP 98.4; O2SAT 96
[2017-09-20 20:00] VITALS: BP 153/70; PULSE 95; RESP 20; TEMP 98.2; O2SAT 95
[2017-09-20] MEDS: REMOVE OLD LIDOCAINE PATCH T-DERMAL SCH (20:24)
[2017-09-20] MEDS ORDERED: MAGN30S PO (20:46)
[2017-09-20] MEDS ORDERED: METH500T3 PO (20:46)
[2017-09-20] MEDS ORDERED: LIDO1ADH4 T-DERMAL (20:46)
[2017-09-20] MEDS ORDERED: PERI PO (20:46)
[2017-09-20 23:02] VITALS: BP 139/79; PULSE 92; RESP 18; TEMP 98; O2SAT 96
[2017-09-21] MEDS: METHOCARBAMOL 500 MG TAB PO SCH ×2 (00:33→08:45)
--- NOTE | 2017-09-21 07:13 | PD.ORT.PN ---
Subjective Subjective Remarks Resting comfortably with no new complaints Objective Vitals Vital Signs Date Time Temp Pulse Resp B/P (MAP) Pulse Ox O2 Delivery O2 Flow Rate FiO2 09/20/17 23:02 98.0 92 18 139/79 (99) 96 09/20/17 21:02 Nasal Cannula 2.00 09/20/17 20:00 98.2 95 20 153/70 (97) 95 09/20/17 16:06 Nasal Cannula 2.00 09/20/17 16:00 98.4 90 18 150/67 (94) 96 09/20/17 12:00 98.0 93 18 133/63 (86) 97 09/20/17 08:00 98.5 95 17 113/76 (88) 95 I/O 09/20/17 09/20/17 09/20/17 09/21/17 09/21/17 09/21/17 07:00 15:00 23:00 07:00 15:00 23:00 Intake Total 480 ml 480 ml 720 ml Output Total 750 ml 900 ml Balance -270 ml 480 ml -180 ml Intake Oral 480 ml 480 ml 720 ml Output Urine Total 750 ml 900 ml # Voids 5 # Bowel Movements 0 1 0 Result Diagram: 09/20/17 0537 09/18/17 0419 Imaging Last 24 hours Impressions Chest X-Ray 09/19/17 0600 Signed Impressions: Service Date/Time: Tuesday, September 19, 2017 06:24 - CONCLUSION: Left basilar atelectasis. Shane Gannon MD Objective Remarks LLE: Dressings clean and dry. intact. +CKS. good cap refill distally. Active dorsiflexion and plantar flexion of foot Assessment & Plan Problem List: (1) Closed fracture of left tibial plateau ICD Codes: S82.142A - Displaced bicondylar fracture of left tibia, initial encounter for closed fracture Status: Acute Qualifiers: Qualified Codes: S82.142A - Displaced bicondylar fracture of left tibia, initial encounter for closed fracture (2) Multiple rib fractures ICD Codes: S22.49XA - Multiple fractures of ribs, unspecified side, initial encounter for closed fracture Status: Acute Qualifiers: Qualified Codes: S22.42XA - Multiple fractures of ribs, left side, initial encounter for closed fracture Assessment and Plan 1) Left Tibial Plateau fx s/p ORIF - POD 2 Multiple rib fractures. Multiple areas of road rash. Right fifth finger fracture. -NWB LLE -knee brace at all times except for PT -PROM 0-90 -no AROM, leg lifts, quad sets -daily dressing changes -DVT prophylaxis -plan for DC home today -f/u Ortho in 2 weeks Incentive spirometry Bubba Miles Jr. Sep 21, 2017 07:13
[2017-09-21 08:00] VITALS: BP 156/80; PULSE 90; RESP 17; TEMP 98.2; O2SAT 93
[2017-09-21] MEDS: CEFAZOLIN INJ 2,000 MG in SODIUM CHLORIDE 0.9% INJ 100 ML IV SCH ×3 (08:45)
[2017-09-21] MEDS: DOCUSATE SODIUM 50 MG/SENNA 8.6 MG TAB PO SCH (08:45)
[2017-09-21] MEDS: CHOLECALCIFEROL (VIT D3) 1000 UNIT TAB PO SCH (08:45)
[2017-09-21] MEDS: MAGNESIUM HYDROXIDE SUSP 30 ML CUP PO SCH (08:45)
[2017-09-21] MEDS: LIDOCAINE HCL 5% PATCH T-DERMAL SCH (08:46)
[2017-09-21] MEDS: SILVER SULFADIAZINE 1% CR 50 GM JAR TOPICAL SCH (08:47)
[2017-09-21] MEDS: ENOXAPARIN SODIUM 30 MG/0.3 ML SYRINGE SQ SCH (08:51)
[2017-09-21 12:00] VITALS: BP_SYST 133; BP_SYST 163; BP_DIAS 105; BP_DIAS 73; PULSE 101; PULSE 92; RESP 17; TEMP 98; TEMP 98.2; O2SAT 100; O2SAT 97
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
== END 2017-09-21 12:53 | disposition home or self-care (01) | DRG 493 ==
LOC: NEPC 05:49 → NEDA 06:18 → NEDH 10:02 → N06B 16:37
PROVIDERS: ADMIT Surgery Trauma Surgery; ATTEND Surgery Trauma Surgery
PROC: 0QSH04Z Reposition Left Tibia with Internal Fixation Device, Open Approach (ICD-10-PCS; principal; 2017-09-19 08:21)
DX: S82.142A Displaced bicondylar fracture of left tibia, initial encounter for closed fracture (principal); S22.42XA Multiple fractures of ribs, left side, initial encounter for closed fracture; T79.7XXA Traumatic subcutaneous emphysema, initial encounter; J98.11 Atelectasis; R40.2412 Glasgow coma scale score 13-15, at arrival to emergency department; S62.626A Displaced fracture of middle phalanx of right little finger, initial encounter for closed fracture; F90.9 Attention-deficit hyperactivity disorder, unspecified type; S61.401A Unspecified open wound of right hand, initial encounter; V28.0XXA Motorcycle driver injured in noncollision transport accident in nontraffic accident, initial encounter
CPT/HCPCS: 71045; 73130; 73140; 73564; 73590; 73700; 76000; 80048; 80053; 85014; 85018; 85025; 85610; 85730; 86850; 86900; 86901; 94150; 94667; 94668; C1713; J0131; J0690; J1100; J1580; J1650; J1885; J2270; J2405; J3370; J7050; J7120; L1830